=== PATIENT | male | born 1975 | race Caucasian/White ===

== ENCOUNTER 2021-03-14 08:27 | Observation (INO) ==
[2021-03-14] MEDS ORDERED: Dexamethasone Sodium Phos/PF 10 MG/ML VIAL IVP ONE (08:38)
[2021-03-14] MEDS ORDERED: Isovue-370 500 ML BOTTLE IVP ONE ×2 (08:52→12:32)
[2021-03-14 09:45] LABS: VBG HCO3 25 mEq/L (21-27); VBG PCO2 42 mmHg (41-51); VBG PH 7.38 pH Units (7.32-7.42); VBG PO2 25 mmHg (25-50)
[2021-03-14] MEDS ORDERED: 0.9 % Sodium Chloride 2,000 ML IV ONE (09:45)
[2021-03-14] MEDS ORDERED: *HR* FentaNYL (PF) 100 MCG/2 ML VIAL IVP ONE (09:54)
[2021-03-14 09:57] LABS: Basophils % 0.2 %; Eosinophils # 0.1 K/mcL (0.0-0.6); Eosinophils % 0.7 %; Hematocrit 47.4 % (37.5-50.1); Hemoglobin 15.9 g/dL (12.9-16.9); Immature Granulocytes % 4.9 % (0-4); Lymphocytes # 1.4 K/mcL (0.6-4.6); Lymphocytes % 15.8 %; Mean Corpuscular HGB Conc 33.5 g/dL (31.6-35.5); Mean Corpuscular Hemoglobin 30.6 pg (28.0-33.3); Mean Corpuscular Volume 91.2 fL (83.0-100.0); Mean Platelet Volume 8.9 fL (9.4-12.4); Monocytes # 0.7 K/mcL (0.0-1.3); Monocytes % 7.2 %; Neutrophils # 6.4 K/mcL (1.6-8.9); Platelet Count 436 K/mcL (140-400); Red Cell Distribution Width 12.7 % (11.5-14.5); Segmented Neutrophils % 71.2 %
[2021-03-14] MEDS ORDERED: Piperacillin/Tazobactam 3.375 GM in 0.9 % Sodium Chloride Mini Bag 100 ML IVPB ONE (10:00)
[2021-03-14 10:04] LABS: Bacteria,Urine Few per hpf (None-Few); Bilirubin,Urine Negative (Negative); Blood,Urine Negative (Negative); Clarity,Urine Clear (Clear); Color,Urine Yellow (Yellow); Glucose,Urine (UA) Normal (Normal); Ketones,Urine Negative (Negative); Leukocyte Esterase,Urine Negative (Negative); Mucus,Urine Few per lpf (None-Few); Nitrite,Urine Negative (Negative); Protein,Urine 30 mg/dL (Neg-Trace); RBC,Urine 0-3 per hpf (0-3); Specific Gravity,Urine > 1.030 (1.010-1.025); Urobilinogen,Urine Normal (Normal)
[2021-03-14 10:06] LABS: Alanine Aminotransferase 73 Units/L (7-52); Albumin 3.5 g/dL (3.5-5.7); Albumin/Globulin Ratio 1.1 (1.1-2.2); Alkaline Phosphatase 41 Units/L (34-104); Aspartate Amino Transferase 34 Units/L (13-39); BUN/Creatinine Ratio 27 (6-26); Bilirubin,Direct 0.2 mg/dL (0.0-0.2); Bilirubin,Indirect 0.7 mg/dL (0.0-1.0); Bilirubin,Total 0.9 mg/dL (0.3-1.0); Blood Urea Nitrogen 33 mg/dL (6-20); Calcium 8.7 mg/dL (8.6-10.3); Carbon Dioxide 24 mEq/L (23-29); Chloride 105 mEq/L (98-107); Globulin 3.2 g/dL (2.4-3.5); Glucose 86 mg/dL (70-105); Osmolality,Calculated 295 (280-300); Potassium 3.5 mEq/L (3.5-5.1); Sodium 139 mEq/L (136-145); Total Protein 6.7 g/dL (6.4-8.9); Troponin I < 0.03 ng/mL (< 0.04); eGFR For African Americans > 60 (> 60); eGFR For Non-African Americans > 60 (> 60)
[2021-03-14 12:54] LABS: Adenovirus Not Detected (Not Detect); Bordetella Pertussis Not Detected (Not Detect); Chlamydophila pneumoniae Not Detected (Not Detect); Coronavirus 229E Not Detected (Not Detect); Coronavirus HKU1 Not Detected (Not Detect); Coronavirus NL63 Not Detected (Not Detect); Coronavirus OC43 Not Detected (Not Detect); Human Metapneumovirus Not Detected (Not Detect); Human Rhinovirus/Enterovirus Not Detected (Not Detect); Influenza A Subtype 2009 H1 Not Detected (Not Detect); Influenza B Not Detected (Not Detect); Mycoplasma pneumoniae Not Detected (Not Detect); Parainfluenza Virus 1 Not Detected (Not Detect); Parainfluenza Virus 2 Not Detected (Not Detect); Parainfluenza Virus 3 Not Detected (Not Detect); Parainfluenza Virus 4 Not Detected (Not Detect); Respiratory Syncytial Virus Not Detected (Not Detect)
[2021-03-14 12:55] LABS: SARS-CoV-2 DETECTED (Not Detect)
[2021-03-14 13:03] LABS: C-Reactive Protein 40 mg/L (Less than 10); Lactate Dehydrogenase 354 Units/L (140-271)
[2021-03-14 13:16] LABS: Ferritin 836 ng/mL (20-250)
[2021-03-14] MEDS: Ipratropium 1 PUFF INHALER IH SCH ×4 (13:23→23:32)
[2021-03-14 13:35] LABS: ABG Base Excess -4 mEq/L (-2 to 3); ABG HCO3 18 mEq/L (21-27); ABG Oxygen Saturation 91 % (95-98); ABG PCO2 26 mmHg (35-45); ABG PH 7.45 pH Units (7.32-7.45); ABG PO2 56 mmHg (85-104); ABG TCO2 19 mEq/L (20-26)
[2021-03-14] MEDS ORDERED: Hydrocortisone Acetate 25 MG RECTAL SUPPOSITORY RC PRN (16:25)
[2021-03-14 16:38] LABS: INR 1.1
[2021-03-14] MEDS ORDERED: Artificial Tears SOLN 15 ML BOTTLE BOTH EYES PRN (16:59)
[2021-03-14] MEDS ORDERED: Saline Nasal Spray 44 ML BOTTLE NS PRN (16:59)
[2021-03-14] MEDS ORDERED: Acetaminophen 325 MG TABLET PO PRN (17:59)
[2021-03-14] MEDS ORDERED: Naloxone 0.4 MG/ML INJ IVP PRN (17:59)
[2021-03-14] MEDS ORDERED: Ondansetron 4 MG/2 ML VIAL IVP PRN (17:59)
[2021-03-14] MEDS: *HR* OxyCODONE Immed Rel 5 MG TABLET PO PRN (18:52)
[2021-03-14] MEDS: Melatonin 3 MG TABLET PO PRN (21:21)
[2021-03-14] MEDS: Chlorhexidine Rinse 15 ML MOUTHWASH MM SCH (21:21)
[2021-03-14] MEDS: *HR* HYDROcodone/Acet 5/325 mg TABLET PO PRN (23:25)
[2021-03-15 01:16] LABS: Basophils % 0.3 %; Hematocrit 41.5 % (37.5-50.1); Immature Granulocytes % 4.7 % (0-4); Lymphocytes % 12.3 %; Mean Corpuscular Hemoglobin 30.4 pg (28.0-33.3); Mean Corpuscular Volume 89.4 fL (83.0-100.0); Mean Platelet Volume 9.2 fL (9.4-12.4); Monocytes # 0.4 K/mcL (0.0-1.3); Monocytes % 5.3 %; Platelet Count 410 K/mcL (140-400); Red Blood Count 4.64 M/mcL (4.19-5.50); Red Cell Distribution Width 12.5 % (11.5-14.5); Segmented Neutrophils % 77.4 %; White Blood Count 7.7 K/mcL (4.3-11.1)
[2021-03-15 01:21] LABS: Hemoglobin 14.1 g/dL (12.9-16.9)
[2021-03-15 01:38] LABS: Alanine Aminotransferase 75 Units/L (7-52); Albumin 3.3 g/dL (3.5-5.7); Albumin/Globulin Ratio 1.1 (1.1-2.2); Alkaline Phosphatase 39 Units/L (34-104); Aspartate Amino Transferase 36 Units/L (13-39); BUN/Creatinine Ratio 26 (6-26); Bilirubin,Total 0.6 mg/dL (0.3-1.0); Blood Urea Nitrogen 23 mg/dL (6-20); C-Reactive Protein 108 mg/L (Less than 10); Calcium 8.5 mg/dL (8.6-10.3); Carbon Dioxide 19 mEq/L (23-29); Chloride 106 mEq/L (98-107); Globulin 2.9 g/dL (2.4-3.5); Glucose 183 mg/dL (70-105); Lactate Dehydrogenase 280 Units/L (140-271); Magnesium 2.3 mg/dL (1.6-2.6); Osmolality,Calculated 290 (280-300); Potassium 3.6 mEq/L (3.5-5.1); Sodium 136 mEq/L (136-145); Total Protein 6.2 g/dL (6.4-8.9); eGFR For African Americans > 60 (> 60); eGFR For Non-African Americans > 60 (> 60)
[2021-03-15 01:55] LABS: Ferritin 899 ng/mL (20-250)
[2021-03-15] MEDS: *HR* OxyCODONE Immed Rel 5 MG TABLET PO PRN ×3 (04:25→21:33)
[2021-03-15] MEDS: Ipratropium 1 PUFF INHALER IH SCH ×5 (04:43→20:35)
[2021-03-15] MEDS: *HR* Enoxaparin 40 MG/0.4 ML SYRINGE SQ SCH (05:53)
[2021-03-15] MEDS: Cholecalciferol (D-3) 1,000 UNIT (25MCG) TABLET PO SCH (09:20)
[2021-03-15] MEDS: Chlorhexidine Rinse 15 ML MOUTHWASH MM SCH ×2 (09:20→21:33)
[2021-03-15] MEDS: *HR* HYDROcodone/Acet 5/325 mg TABLET PO PRN (09:21)
[2021-03-15] MEDS: Multivit/Ca/Min/Fe/FA 1 TAB TABLET PO SCH (09:21)
[2021-03-15] MEDS: Melatonin 3 MG TABLET PO PRN (21:33)
[2021-03-16] MEDS: Ipratropium 1 PUFF INHALER IH SCH ×4 (00:30→11:50)
[2021-03-16 02:36] LABS: Basophils % 0.3 %; Eosinophils % 0.1 %; Hematocrit 40.5 % (37.5-50.1); Hemoglobin 13.4 g/dL (12.9-16.9); Lymphocytes # 1.2 K/mcL (0.6-4.6); Lymphocytes % 11.2 %; Mean Corpuscular HGB Conc 33.1 g/dL (31.6-35.5); Mean Corpuscular Volume 90.8 fL (83.0-100.0); Mean Platelet Volume 9.3 fL (9.4-12.4); Monocytes # 0.8 K/mcL (0.0-1.3); Monocytes % 7.6 %; Neutrophils # 7.8 K/mcL (1.6-8.9); Platelet Count 403 K/mcL (140-400); Red Blood Count 4.46 M/mcL (4.19-5.50); Red Cell Distribution Width 12.8 % (11.5-14.5); Segmented Neutrophils % 75.8 %; White Blood Count 10.4 K/mcL (4.3-11.1)
[2021-03-16 02:56] LABS: Alanine Aminotransferase 78 Units/L (7-52); Albumin 3.3 g/dL (3.5-5.7); Albumin/Globulin Ratio 1.3 (1.1-2.2); Alkaline Phosphatase 35 Units/L (34-104); Aspartate Amino Transferase 35 Units/L (13-39); BUN/Creatinine Ratio 22 (6-26); Bilirubin,Total 0.5 mg/dL (0.3-1.0); Blood Urea Nitrogen 21 mg/dL (6-20); C-Reactive Protein 44 mg/L (Less than 10); Calcium 8.6 mg/dL (8.6-10.3); Carbon Dioxide 21 mEq/L (23-29); Chloride 106 mEq/L (98-107); Globulin 2.5 g/dL (2.4-3.5); Glucose 135 mg/dL (70-105); Lactate Dehydrogenase 252 Units/L (140-271); Magnesium 2.2 mg/dL (1.6-2.6); Osmolality,Calculated 289 (280-300); Phosphorous 3.2 mg/dL (2.7-4.5); Potassium 4.2 mEq/L (3.5-5.1); Sodium 137 mEq/L (136-145); Total Protein 5.8 g/dL (6.4-8.9); eGFR For African Americans > 60 (> 60); eGFR For Non-African Americans > 60 (> 60)
[2021-03-16 03:13] LABS: Ferritin 797 ng/mL (20-250)
[2021-03-16] MEDS: *HR* Enoxaparin 40 MG/0.4 ML SYRINGE SQ SCH (05:32)
[2021-03-16 08:29] VITALS: TEMP 97.9
[2021-03-16] MEDS: Cholecalciferol (D-3) 1,000 UNIT (25MCG) TABLET PO SCH (09:54)
[2021-03-16] MEDS: Multivit/Ca/Min/Fe/FA 1 TAB TABLET PO SCH (09:54)
[2021-03-16] MEDS: Chlorhexidine Rinse 15 ML MOUTHWASH MM SCH (09:54)
[2021-03-16 10:19] VITALS: BP 121/73; PULSE 86; O2SAT 92
[2021-03-16] MEDS: *HR* HYDROcodone/Acet 5/325 mg TABLET PO PRN (11:33)
== END 2021-03-16 15:21 | disposition home or self-care (01) ==
LOC: SUATTDRO → EMEROOARM 08:27 → 3ANU 08:27 → SUATTDRO 13:34 → 3ANU 14:39
PROVIDERS: ADMIT Internal Medicine; ATTEND Family Medicine